=== PATIENT | male | born 1945 | race Two or more races ===

== ENCOUNTER 2024-11-09 23:02 | Inpatient (IN) | payer OTHER ==
[~2024-11-09] VITALS: Ht 175.3 cm; Wt 117.9 kg
--- NOTE | 2024-11-09 23:12 | NUR ---
SE RECIBE PTE ALERTA Y ORIENTADO EL CUAL REFIERE VENIR POR TRAUMA EN [place] LT. PTE REFIERE POSSIBLE DISLOCACION DE HOMBRO. SE MIDEN S/V A PTE Y SE UBICA.
--- NOTE | 2024-11-10 00:40 | NUR ---
SE CARMITA GARDNRE.
[2024-11-10] MEDS ORDERED: KETOROLAC TROMETHAMINE 60 MG VIAL IM STA (00:56)
[2024-11-10] MEDS ORDERED: ACETAMINOPHEN 500 MG GEL..CAP PO STA (00:57)
[2024-11-10] MEDS ORDERED: ACETAMINOPHEN 500 MG GEL..CAP PO ONE (01:00)
[2024-11-10] MEDS ORDERED: KETOROLAC TROMETHAMINE 60 MG VIAL IM ONE (01:00)
--- NOTE | 2024-11-10 01:07 | NUR ---
PTE ALERTA Y ORIENTADO X3. SE ADMNISTRA MEDICAMENTOS JAN ORDEN MEDICA Y BAJO MEDIDAS ASEPTICAS.
[2024-11-10] MEDS ORDERED: 0.9 % SODIUM CHLORIDE 1,000 ML IV STA (01:27)
[2024-11-10] MEDS ORDERED: OxyCODONE HCL/APAP UD (PERCOCET) PO STA (01:28)
[2024-11-10 02:54] LABS: HEMOGLOBIN 10.9 g/dL (13-16.00); MEAN CELL VOLUME 94.7 fL (80.0-100.00); MEAN CORPUSCULAR HEMOGLOBIN 32.2 pg (27.00-32.0); PLATELET COUNT 315 K/uL (150-450); RED BLOOD COUNT 3.37 M/uL (4.00-6.00); RED CELL DISTRIBUTION WIDTH 13.5 % (11.5-14.5)
[2024-11-10 03:14] LABS: INR 1.06; PARTIAL THROMBOPLASTIN TIME 22.7 SECONDS (22.0-34.0); PROTHROMBIN TIME 11.5 SECONDS (9.0-11.5)
[2024-11-10 03:20] LABS: ALBUMIN 3.9 gm/dL (3.4-5.0); BILIRUBIN TOTAL 0.28 mg/dL (0.3-1.2); GFR 11.96; GLOBULINA 3.7 G/DL (2.4-3.5); POTASSIUM 5.62 mEq/L (3.5-5.1); TOTAL PROTEIN 7.6 gm/dL (6.4-8.2)
[2024-11-10 03:58] LABS: CREATININE SERUM 4.73 mg/dL (0.70-1.30)
[2024-11-10] MEDS ORDERED: FAMOTIDINE/PF 20 MG in 0.9 % SODIUM CHLORIDE 8 ML IV PUSH SCH (12:37)
[2024-11-10] MEDS ORDERED: hydrALAZINE HCL 20 MG VIAL IV PRN (12:45)
[2024-11-10] MEDS ORDERED: TRAMADOL HCL 50 MG TABLET PO PRN (12:45)
[2024-11-10] MEDS ORDERED: INSULIN LISPRO 1,000 UNIT/10 ML UNITS SUBCUTANEO PRN (12:45)
[2024-11-10] MEDS ORDERED: DEXTROSE 50 % IN WATER 0.5 G/ML DISP.SYRIN IV PRN (12:45)
[2024-11-10] MEDS ORDERED: 0.9 % SODIUM CHLORIDE 1,000 ML IV SCH (12:45)
[2024-11-10] MEDS ORDERED: SODIUM POLYSTYRENE SULFONATE 15 G/4 TSP TSP PO SCH (13:06)
[2024-11-10] MEDS ORDERED: SODIUM POLYSTYRENE SULFONATE 15 G/4 TSP TSP ONE (16:25)
[2024-11-10] MEDS ORDERED: FAMOTIDINE/PF 20 MG/2 ML VIAL ONE (16:26)
[2024-11-10 17:17] LABS: ALBUMIN 3.6 gm/dL (3.4-5.0); GFR 14.19; POTASSIUM 5.17 mEq/L (3.5-5.1)
[2024-11-10 17:56] LABS: CREATININE SERUM 4.08 mg/dL (0.70-1.30)
[2024-11-10 21:01] LABS: URINE APPEARANCE Error; URINE BILIRRUBIN Negative (NEGATIVE); URINE BLOOD Negative; URINE COLOR Yellow; URINE GLUCOSE Negative (NEGATIVE); URINE KETONE Negative (NEGATIVE); URINE LEUKOCYTE Negative; URINE NITRATE Negative; URINE PROTEIN Trace (NEGATIVE); URINE UROBILINOGEN 0.2 E.U./dl
[2024-11-10 21:02] LABS: URINE BACTERIA 67.2 uL (0.0-1933); URINE EPITHELIAL CELLS 5.3 uL (0.0-38.8); URINE RBC 27.1 uL (0.0-20.8); URINE WBC 6.4 uL (0.0-23.2)
[2024-11-10 21:11] LABS: URINE CAST 0.14 uL (0.0-1.40)
[2024-11-11 01:00] VITALS: BP 131/67
[2024-11-11 06:38] LABS: ALBUMIN 3.5 gm/dL (3.4-5.0); BILIRUBIN TOTAL 0.25 mg/dL (0.3-1.2); CALCIUM 8.9 mg/dL (8.5-10.1); GFR 15.04; POTASSIUM 5.56 mEq/L (3.5-5.1); TOTAL PROTEIN 6.5 gm/dL (6.4-8.2)
[2024-11-11 07:37] LABS: CREATININE SERUM 3.88 mg/dL (0.70-1.30)
[2024-11-11 08:18] VITALS: BP 135/67
[2024-11-11] MEDS ORDERED: ENOXAPARIN SODIUM 30 MG/0.3 ML SYRINGE SUBCUTANEO NR (10:00)
[2024-11-11] MEDS ORDERED: ONDANSETRON HCL 4 MG in 0.9 % SODIUM CHLORIDE 50 ML IV PRN (12:30)
[2024-11-11 12:48] LABS: HEMATOCRIT 29.2 % (39.0-48.0); HEMOGLOBIN 10.3 g/dL (13-16.00); MEAN CORPUSCULAR HEMOGLOBIN 33.1 pg (27.00-32.0); MEAN CORPUSCULAR HGB CONC 35.2 g/dl (32.0-36.0); PLATELET COUNT 301 K/uL (150-450); RED BLOOD COUNT 3.11 M/uL (4.00-6.00); RED CELL DISTRIBUTION WIDTH 13.8 % (11.5-14.5)
[2024-11-11] MEDS ORDERED: FUROSEMIDE20 MG (13:44)
[2024-11-11] MEDS ORDERED: HYDRALAZINE HC100 MG (13:44)
[2024-11-11] MEDS ORDERED: ISOSORBIDE MON120 MG (13:44)
[2024-11-11] MEDS ORDERED: EZETIMIBE10 MG (13:44)
[2024-11-11] MEDS ORDERED: AMLODIPINE BESYL5 MG (13:44)
[2024-11-11] MEDS ORDERED: FENOFIBRATE54 MG (13:44)
[2024-11-11] MEDS ORDERED: ATORVASTATIN CA20 MG (13:45)
[2024-11-11] MEDS ORDERED: LOSARTAN POTAS100 MG (13:45)
[2024-11-11] MEDS ORDERED: CARVEDILOL6.25 M1 (13:45)
[2024-11-11 13:47] LABS: CHOL HDL RATIO 2.9 (0-5.0); PROSTATIC SPECIFIC ANTIGEN 0.025 NG/ML (0.010-4.00); T4 FREE 0.96 NG/ML (0.76-1.46); TSH 1.6 uIU/mL (0.358-3.74)
[2024-11-11 17:16] VITALS: BP 160/76; O2SAT 98
[2024-11-11] MEDS ORDERED: CARVEDILOL 6.25 MG TABLET PO SCH (19:32)
[2024-11-11] MEDS ORDERED: ATORVASTATIN CALCIUM 20 MG TABLET PO SCH (19:33)
[2024-11-12 02:32] VITALS: BP 160/78
[2024-11-12] MEDS ORDERED: LOSARTAN POTASSIUM 100 MG TABLET PO SCH (09:00)
[2024-11-12] MEDS ORDERED: ISOSORBIDE MONONITRATE 60 MG TABLET PO SCH ×2 (09:00→17:00)
[2024-11-12] MEDS ORDERED: ENOXAPARIN SODIUM 30 MG/0.3 ML SYRINGE SUBCUTANEO SCH (09:00)
[2024-11-12 09:15] VITALS: BP 172/66; O2SAT 100
[2024-11-12 11:27] LABS: ALBUMIN 3.4 gm/dL (3.4-5.0); BILIRUBIN TOTAL 0.34 mg/dL (0.3-1.2); CALCIUM 8.6 mg/dL (8.5-10.1); CREATININE SERUM 3.3 mg/dL (0.70-1.30); GFR 18.13; GLOBULINA 3.2 G/DL (2.4-3.5); TOTAL PROTEIN 6.6 gm/dL (6.4-8.2)
[2024-11-12] MEDS ORDERED: FAMOTIDINE/PF 20 MG/2 ML VIAL ONE (16:21)
[2024-11-12 17:38] VITALS: BP 107/52
[2024-11-13 02:34] VITALS: BP 140/59
[2024-11-13] MEDS ORDERED: INSULIN LISPRO 1,000 UNIT/10 ML UNITS SUBCUTANEO PRN (07:30)
[2024-11-13 09:40] VITALS: BP 175/72; O2SAT 96
[2024-11-13 14:29] LABS: ALBUMIN 3.3 gm/dL (3.4-5.0); BILIRUBIN TOTAL 0.43 mg/dL (0.3-1.2); CALCIUM 8.4 mg/dL (8.5-10.1); CREATININE SERUM 2.71 mg/dL (0.70-1.30); GFR 22.75; GLOBULINA 2.8 G/DL (2.4-3.5); POTASSIUM 4.53 mEq/L (3.5-5.1); TOTAL PROTEIN 6.1 gm/dL (6.4-8.2)
[2024-11-13 17:04] VITALS: BP 180/66
[2024-11-14 02:27] VITALS: BP 160/68
[2024-11-14 07:58] LABS: ALBUMIN 2.7 gm/dL (3.4-5.0); BILIRUBIN TOTAL 0.4 mg/dL (0.3-1.2); CALCIUM 7.1 mg/dL (8.5-10.1); CREATININE SERUM 2.15 mg/dL (0.70-1.30); GFR 29.72; GLOBULINA 2.5 G/DL (2.4-3.5); TOTAL PROTEIN 5.2 gm/dL (6.4-8.2)
[2024-11-14 17:31] VITALS: BP 190/84; O2SAT 95
[2024-11-15 03:32] VITALS: BP 184/78
[2024-11-15 06:47] LABS: CALCIUM 8.2 mg/dL (8.5-10.1); CREATININE SERUM 2.35 mg/dL (0.70-1.30); GFR 26.82; POTASSIUM 4.61 mEq/L (3.5-5.1)
[2024-11-15 09:05] VITALS: BP 173/69
[2024-11-15 09:31] LABS: HEMATOCRIT 24.9 % (39.0-48.0); MEAN CELL VOLUME 93.9 fL (80.0-100.00); MEAN CORPUSCULAR HGB CONC 34.8 g/dl (32.0-36.0); PLATELET COUNT 301 K/uL (150-450); RED BLOOD COUNT 2.65 M/uL (4.00-6.00); RED CELL DISTRIBUTION WIDTH 13.8 % (11.5-14.5)
[2024-11-15 09:32] LABS: HEMOGLOBIN 8.7 g/dL (13-16.00); MEAN CORPUSCULAR HEMOGLOBIN 32.8 pg (27.00-32.0)
[2024-11-15] MEDS ORDERED: SODIUM CHLORIDE 0.45 % 1,000 ML IV SCH ×2 (10:00→19:45)
[2024-11-15] MEDS ORDERED: 0.9 % SODIUM CHLORIDE 1,000 ML IV SCH (10:00)
[2024-11-15] MEDS ORDERED: AMLODIPINE BESYLATE 5 MG TABLET PO NR (12:00)
[2024-11-15] MEDS ORDERED: Cyanocobalamin/Mecobalamin 1 TAB.SL SL SCH (12:00)
[2024-11-15] MEDS ORDERED: SOD FERRIC GLUC COMPLX/SUCROSE 62.5 MG in 0.9 % SODIUM CHLORIDE 50 ML IV SCH (12:00)
[2024-11-15] MEDS ORDERED: SOD FERRIC GLUC COMPLX/SUCROSE 62.5 MG/5 ML AMPUL IV ONE (13:18)
[2024-11-15 18:44] VITALS: BP 187/77; O2SAT 99
[2024-11-16 03:08] VITALS: BP 162/70
[2024-11-16] MEDS ORDERED: SOD FERRIC GLUC COMPLX/SUCROSE 62.5 MG/5 ML AMPUL IV ONE (08:50)
[2024-11-16] MEDS ORDERED: FAMOTIDINE/PF 20 MG/2 ML VIAL ONE (08:51)
[2024-11-16 08:57] VITALS: BP 160/64; O2SAT 97
[2024-11-16] MEDS ORDERED: AMLODIPINE BESYLATE 5 MG TABLET PO SCH (09:00)
[2024-11-16 16:47] VITALS: BP 155/66
[2024-11-17 00:44] VITALS: BP 156/73
[2024-11-17 05:12] LABS: HEMATOCRIT 24.6 % (39.0-48.0); MEAN CELL VOLUME 95.7 fL (80.0-100.00); MEAN CORPUSCULAR HGB CONC 34.8 g/dl (32.0-36.0); PLATELET COUNT 315 K/uL (150-450); RED BLOOD COUNT 2.57 M/uL (4.00-6.00); RED CELL DISTRIBUTION WIDTH 13.7 % (11.5-14.5)
[2024-11-17 05:14] LABS: HEMOGLOBIN 8.6 g/dL (13-16.00); MEAN CORPUSCULAR HEMOGLOBIN 33.4 pg (27.00-32.0)
[2024-11-17 05:31] LABS: ALBUMIN 2.8 gm/dL (3.4-5.0); BILIRUBIN TOTAL 0.58 mg/dL (0.3-1.2); CALCIUM 8.4 mg/dL (8.5-10.1); CREATININE SERUM 2.19 mg/dL (0.70-1.30); GFR 29.1; GLOBULINA 2.7 G/DL (2.4-3.5); POTASSIUM 4.28 mEq/L (3.5-5.1); TOTAL PROTEIN 5.5 gm/dL (6.4-8.2)
[2024-11-17] MEDS ORDERED: SOD FERRIC GLUC COMPLX/SUCROSE 62.5 MG/5 ML AMPUL IV ONE (08:39)
[2024-11-17] MEDS ORDERED: FAMOTIDINE/PF 20 MG/2 ML VIAL ONE (08:39)
[2024-11-17 08:54] VITALS: BP 187/78; O2SAT 95
[2024-11-17] MEDS ORDERED: COLCHICINE 0.6 MG TABLET PO STA (15:22)
[2024-11-17 15:59] LABS: ALBUMIN 2.8 gm/dL (3.4-5.0); BILIRUBIN TOTAL 0.7 mg/dL (0.3-1.2); CALCIUM 8.5 mg/dL (8.5-10.1); CREATININE SERUM 2.08 mg/dL (0.70-1.30); GFR 30.88; GLOBULINA 3.1 G/DL (2.4-3.5); POTASSIUM 4.8 mEq/L (3.5-5.1); TOTAL PROTEIN 5.9 gm/dL (6.4-8.2); URIC ACID 7.9 mg/dL (3.5-8.5)
[2024-11-17] MEDS ORDERED: COLCHICINE 0.6 MG TABLET PO SCH (17:00)
[2024-11-17 18:00] VITALS: BP 154/63
[2024-11-17] MEDS ORDERED: DOXAZOSIN MESYLATE 4 MG TABLET PO SCH (21:00)
[2024-11-17] MEDS ORDERED: CITRIC ACID/SODIUM CITRATE 30 ML BLIST.PACK PO SCH (21:00)
[2024-11-18 01:30] VITALS: BP 139/62
[2024-11-18 07:00] LABS: ALBUMIN 2.5 gm/dL (3.4-5.0); BILIRUBIN TOTAL 0.61 mg/dL (0.3-1.2); CALCIUM 8.2 mg/dL (8.5-10.1); CREATININE SERUM 2.13 mg/dL (0.70-1.30); GFR 30.04; GLOBULINA 2.8 G/DL (2.4-3.5); POTASSIUM 4.18 mEq/L (3.5-5.1); TOTAL PROTEIN 5.3 gm/dL (6.4-8.2)
[2024-11-18] MEDS ORDERED: FUROsemide 20 MG/2 ML VIAL IV SCH (09:00)
[2024-11-18 09:12] VITALS: BP 155/66
[2024-11-18 17:23] VITALS: BP 147/58; O2SAT 98
[2024-11-18] MEDS ORDERED: 0.9 % SODIUM CHLORIDE 10 ML VIAL IJ ONE ×2 (20:55→20:57)
[2024-11-19 03:18] VITALS: BP 150/61
[2024-11-19 08:56] VITALS: BP 145/57
[2024-11-19 09:49] LABS: FERRITIN 358.5 NG/ML (26-388); URIC ACID 8.4 mg/dL (3.5-8.5)
[2024-11-19 10:03] LABS: PROSTATIC SPECIFIC ANTIGEN 0.011 NG/ML (0.010-4.00)
[2024-11-19 13:07] LABS: FOLIC ACID 8.85 ng/ml (4.78-20)
[2024-11-19 15:18] LABS: HEMATOCRIT 28.1 % (39.0-48.0); HEMOGLOBIN 9.7 g/dL (13-16.00); MEAN CELL VOLUME 92.8 fL (80.0-100.00); MEAN CORPUSCULAR HGB CONC 34.5 g/dl (32.0-36.0); PLATELET COUNT 318 K/uL (150-450); RED BLOOD COUNT 3.03 M/uL (4.00-6.00); RED CELL DISTRIBUTION WIDTH 14.4 % (11.5-14.5)
[2024-11-19 18:37] VITALS: BP 154/57
[2024-11-20 03:03] VITALS: BP 129/56; BP 91/43; O2SAT 99
[2024-11-20 09:21] VITALS: BP 152/66; O2SAT 96
[2024-11-20] MEDS ORDERED: FUROsemide 20 MG/2 ML VIAL IV SCH (11:00)
[2024-11-20 14:19] LABS: HEMATOCRIT 27.9 % (39.0-48.0); HEMOGLOBIN 9.8 g/dL (13-16.00); MEAN CELL VOLUME 91.5 fL (80.0-100.00); MEAN CORPUSCULAR HEMOGLOBIN 32.2 pg (27.00-32.0); MEAN CORPUSCULAR HGB CONC 35.2 g/dl (32.0-36.0); PLATELET COUNT 319 K/uL (150-450); RED BLOOD COUNT 3.05 M/uL (4.00-6.00); RED CELL DISTRIBUTION WIDTH 14.3 % (11.5-14.5)
[2024-11-20 14:55] LABS: ALBUMIN 2.4 gm/dL (3.4-5.0); BILIRUBIN TOTAL 0.56 mg/dL (0.3-1.2); CALCIUM 8.3 mg/dL (8.5-10.1); CREATININE SERUM 2.12 mg/dL (0.70-1.30); GFR 30.21; GLOBULINA 3.1 G/DL (2.4-3.5); POTASSIUM 4.49 mEq/L (3.5-5.1); TOTAL PROTEIN 5.5 gm/dL (6.4-8.2)
[2024-11-20 16:05] LABS: hgb a 97.8 % (96.4-98.8); hgb a2 2.2 % (1.8-3.2); hgb f 0 % (0.0-2.0); hgb s 0 % (0.0)
[2024-11-20 17:42] VITALS: BP 151/72
[2024-11-21 01:53] VITALS: BP 146/75; O2SAT 97
[2024-11-21 08:23] LABS: HEMATOCRIT 31.9 % (39.0-48.0); HEMOGLOBIN 10.6 g/dL (13-16.00); MEAN CELL VOLUME 93.9 fL (80.0-100.00); MEAN CORPUSCULAR HEMOGLOBIN 31.1 pg (27.00-32.0); MEAN CORPUSCULAR HGB CONC 33.1 g/dl (32.0-36.0); PLATELET COUNT 328 K/uL (150-450); RED CELL DISTRIBUTION WIDTH 14.3 % (11.5-14.5)
[2024-11-21 08:51] LABS: ALBUMIN 2.5 gm/dL (3.4-5.0); BILIRUBIN TOTAL 0.73 mg/dL (0.3-1.2); CALCIUM 8.3 mg/dL (8.5-10.1); CREATININE SERUM 2.31 mg/dL (0.70-1.30); GFR 27.36; POTASSIUM 4.59 mEq/L (3.5-5.1); TOTAL PROTEIN 5.5 gm/dL (6.4-8.2)
[2024-11-21 09:45] VITALS: BP 166/66; O2SAT 97
[2024-11-21 18:23] VITALS: BP 153/72; O2SAT 98
[2024-11-22 02:51] VITALS: BP 148/63; O2SAT 97
[2024-11-22 12:06] VITALS: BP 152/61
[2024-11-22 18:04] LABS: g6pd quant 282 (127-427); rbc 2.84 x10E6/uL (4.14-5.80)
[2024-11-22 19:22] VITALS: BP 159/67; O2SAT 96
[2024-11-23 01:19] VITALS: BP 150/69; O2SAT 97
[2024-11-23 09:35] VITALS: BP 150/50
[2024-11-23 16:26] VITALS: BP 167/63
[2024-11-24 02:49] VITALS: BP 158/64
[2024-11-24 08:00] VITALS: BP 185/88
[2024-11-24 16:30] VITALS: BP 160/71
[2024-11-25 02:30] VITALS: BP 137/83
[2024-11-25 09:29] VITALS: BP 170/70
[2024-11-25] MEDS ORDERED: VITAMIN B COMPLEX 1 EACH PO SCH (17:00)
[2024-11-25] MEDS ORDERED: SOD FERRIC GLUC COMPLX/SUCROSE 62.5 MG/5 ML AMPUL IV SCH (17:00)
[2024-11-25 19:34] VITALS: BP 153/72; O2SAT 97
[2024-11-26 01:42] VITALS: BP 141/56; O2SAT 97
[2024-11-26 09:25] VITALS: BP 151/69; O2SAT 96
[2024-11-26 12:13] LABS: HEMATOCRIT 30.2 % (39.0-48.0); HEMOGLOBIN 10.3 g/dL (13-16.00); MEAN CELL VOLUME 92.4 fL (80.0-100.00); MEAN CORPUSCULAR HEMOGLOBIN 31.4 pg (27.00-32.0); PLATELET COUNT 315 K/uL (150-450); RED BLOOD COUNT 3.27 M/uL (4.00-6.00); RED CELL DISTRIBUTION WIDTH 14.2 % (11.5-14.5)
[2024-11-26 12:44] LABS: ALBUMIN 2.7 gm/dL (3.4-5.0); BILIRUBIN TOTAL 0.58 mg/dL (0.3-1.2); CALCIUM 7.9 mg/dL (8.5-10.1); CREATININE SERUM 1.91 mg/dL (0.70-1.30); GFR 34.07; POTASSIUM 4.9 mEq/L (3.5-5.1); TOTAL PROTEIN 5.7 gm/dL (6.4-8.2)
[2024-11-26 18:47] VITALS: BP 160/72; O2SAT 98
[2024-11-27 01:27] VITALS: BP 164/81
[2024-11-27 08:23] VITALS: BP 162/85
[2024-11-27 18:40] VITALS: BP 160/78; O2SAT 97
[2024-11-28 02:11] VITALS: BP 187/78
[2024-11-28 08:17] VITALS: BP 174/80
== END 2024-11-28 13:17 | disposition designated cancer center or children's hospital (05) | DRG 683 ==
LOC: ER 23:05 → MEDJ 11-10 12:48 → SEC-K 11-10 12:48 → MEDJ 11-10 17:19
PROVIDERS: General Practice; Internal Medicine; Internal Medicine Geriatric Medicine; Internal Medicine Hematology & Oncology; Internal Medicine Nephrology; ADMIT Internal Medicine; ATTEND Internal Medicine
PROC: B246ZZZ Ultrasonography of Right and Left Heart (ICD-10-PCS; 2024-11-10)
PROC: BT4JZZZ Ultrasonography of Kidneys and Bladder (ICD-10-PCS; principal; 2024-11-11)
PROC: B54NZZZ Ultrasonography of Left Upper Extremity Veins (ICD-10-PCS; 2024-11-17)
PROC: 02HV33Z Insertion of Infusion Device into Superior Vena Cava, Percutaneous Approach (ICD-10-PCS; 2024-11-17)
PROC: 30233N1 Transfusion of Nonautologous Red Blood Cells into Peripheral Vein, Percutaneous Approach (ICD-10-PCS; 2024-11-18)
DX: N17.8 Other acute kidney failure (principal); M97.32XA Periprosthetic fracture around internal prosthetic left shoulder joint, initial encounter; S42.292A Other displaced fracture of upper end of left humerus, initial encounter for closed fracture; W13.3XXA Fall through floor, initial encounter; Y92.098 Other place in other non-institutional residence as the place of occurrence of the external cause; E78.49 Other hyperlipidemia; E11.65 Type 2 diabetes mellitus with hyperglycemia; Z79.4 Long term (current) use of insulin; E86.0 Dehydration; E11.22 Type 2 diabetes mellitus with diabetic chronic kidney disease; I12.9 Hypertensive chronic kidney disease with stage 1 through stage 4 chronic kidney disease, or unspecified chronic kidney disease; N18.32 Chronic kidney disease, stage 3b; E87.5 Hyperkalemia; M10.062 Idiopathic gout, left knee; D53.0 Protein deficiency anemia; E11.40 Type 2 diabetes mellitus with diabetic neuropathy, unspecified; D63.1 Anemia in chronic kidney disease; T79.6XXA Traumatic ischemia of muscle, initial encounter